=== PATIENT | male | born 1940 | race Caucasian/White ===

== ENCOUNTER 2021-03-03 08:05 | Day surgery (SDC) | payer MEDICARE, BC ==
[2021-02-25 15:12] LABS: BASOPHILS % (AUTO) 0.9 % (0-1); EOSINOPHILS # (AUTO) 0.1 X10'3 (0-0.9); EOSINOPHILS % (AUTO) 3.1 % (0-6); LYMPHOCYTES # (AUTO) 0.7 X10'3 (1.1-4.8); MEAN CORPUSCULAR HEMOGLOBIN 30.8 PG (27.0-31.0); MEAN CORPUSCULAR HGB CONC 33.1 g/dL (33.0-36.5); MEAN PLATELET VOLUME 9.3 FL (7.4-10.4); MONOCYTES # (AUTO) 0.3 X10'3 (0-0.9); MONOCYTES % (AUTO) 7.8 % (2-12); NEUTROPHILS # (AUTO) 3.2 X10'3 (1.8-7.7); NEUTROPHILS % (AUTO) 72.2 % (42-75); PRE OP HEMATOCRIT 42.4 % (42.0-52.0); PRE OP PLATELET COUNT 120 X10'3 (140-440); RED BLOOD COUNT 4.56 X10'6 (4.70-6.10); RED CELL DISTRIBUTION WIDTH 14.3 % (11.5-14.5)
[2021-02-25 15:24] LABS: PRE OP PROTIME 10.6 SECONDS (9.0-12.0)
[2021-02-25 15:27] LABS: ALBUMIN 3.9 G/DL (3.4-5.0); ALBUMIN/GLOBULIN RATIO 1.3 (1.1-1.5); ALKALINE PHOSPHATASE 53 IU/L (46-116); BLOOD UREA NITROGEN 27 MG/DL (7-18); BUN/CREATININE RATIO 15.3 (5.4-32.0); CHLORIDE 109 MMOL/L (99-107); CREATININE 1.77 MG/DL (0.60-1.10); PRE OP ALT 36 U/L (30-65); PRE OP ANION GAP 9 (8-16); PRE OP AST 29 U/L (10-37); PRE OP BILIRUB, TOTAL 0.4 MG/DL (0.0-1.0); PRE OP GLUCOSE 118 MG/DL (70-104); PRE OP POTASSIUM 4.4 MMOL/L (3.4-5.1); PRE OP SODIUM 146 MMOL/L (135-145); TOTAL CARBON DIOXIDE 27.6 MMOL/L (24-32); eGFR 37 ML/MIN
[2021-03-03] VITALS (9 sets, daily range): BP systolic 104–134; BP diastolic 61–77
[~2021-03-03] VITALS: Ht 177.8 cm; Wt 99.3 kg
[~2021-03-03 08:05] MED LIST: ANAS1TAB10 PO; ATOR40TA72 PO; CLOP75TA34 PO; DUTA0.5C36 PO; FEBU40TA PO; HYDR-3968 PO; LEVO50TA8 PO; LIDOcaine 1% W/epiNEPHrine 1:100,000 20ml vial ONE; PREG150C46 PO; cefTAZidime 1gm inj ONE; cocaine 4% topical solution 4ml bottle ONE; famotidine 20mg tablet PO ONE; mupirocin 2% ointment 22GM ONE; oxymetazoline 15 ML nasal spray NS ONE; oxymetazoline 15 ML nasal spray NS PRN; ringers solution, lacted 1,000 ML IV SCH
--- NOTE | 2021-03-03 08:30 | NUR ---
PT RESPONDED ALL NEGATIVES TO COVID VERBAL SCREENING QUESTIONS.
[2021-03-03] MEDS ORDERED: fentaNYL/PF 50MCG/1 ML 2ML syringe ONE (09:14)
[2021-03-03] MEDS ORDERED: propofol inj 20 ML IV ONE (09:15)
[2021-03-03] MEDS ORDERED: LIDOcaine 2% (20mg/ml) 5ml vial ONE (09:15)
[2021-03-03] MEDS ORDERED: sevoflurane 250ml liquid IH ONE (09:25)
[2021-03-03] MEDS ORDERED: ringers solution, lacted 1,000 ML IV SCH (10:00)
[2021-03-03] MEDS ORDERED: morphine 2 MG/ML inj. syringe IV PRN (10:00)
[2021-03-03] MEDS ORDERED: ondansetron/PF 4mg/2ml inj IV PRN (10:00)
[2021-03-03] MEDS ORDERED: glycopyrrolate 0.2mg/ml inj ONE (10:48)
[2021-03-03] MEDS ORDERED: ondansetron/PF 4mg/2ml inj ONE (10:48)
[2021-03-03] MEDS ORDERED: dexamethasone sod phosphate 4mg/ml inj. ONE (10:48)
--- NOTE | 2021-03-03 11:05 | NUR ---
Received from OR via [facility], accompanied by Anesthesiologist DR STAPLETON and report given by Anesthesiologist. PATIENT WAKING UP, NO S/S OF PAIN, V/S WNL, SCD ON, 20G TO RUE, COTTONOID TO LEFT NARE-NO DRAINAGE NOTED.
--- NOTE | 2021-03-03 11:35 | NUR ---
COTTONOID REMOVED WITH LITTLE DRAINAGE-PT TOLERATED WELL.
[2021-03-03] MEDS ORDERED: salt irrigation nasal spray 45 ML SPRAY NS SCH ×2 (11:38→13:00)
--- NOTE | 2021-03-03 12:25 | NUR ---
PT UP AND DRESSED, ABLE TO VOID, VSS, DENIES ANY PAIN, PIV D/CD- CANNULA INTACT, DISCUSSED HOME CARE FOR NASAL IRRIGATION AND MEDICATIONS, PT USED OCEAN SPRAY AND OINTMENT BEFORE LEAVING, ALL QUESTIONS ANSWERED, FRESH GAUZE PLACE UNDER NOSE, PT TAKEN WITH SUPPLIES AND BELONGINGS TO VEHICLE, TRANSPORTED BY FRIEND HOME.
== END 2021-03-03 12:25 | disposition home or self-care (01) ==
LOC: PAS 08:05
PROVIDERS: ATTEND Otolaryngology
DX: J32.8 Other chronic sinusitis (principal); J34.3 Hypertrophy of nasal turbinates; J33.8 Other polyp of sinus; I25.2 Old myocardial infarction; G47.33 Obstructive sleep apnea (adult) (pediatric); Z96.611 Presence of right artificial shoulder joint; Z95.5 Presence of coronary angioplasty implant and graft; Z98.890 Other specified postprocedural states; Z87.442 Personal history of urinary calculi; Z88.8 Allergy status to other drugs, medicaments and biological substances; Z79.899 Other long term (current) drug therapy; Z87.891 Personal history of nicotine dependence; Z79.01 Long term (current) use of anticoagulants
CPT/HCPCS: 30140; 31255; 31267; 36415; 61782; 80053; 82948; 85025; 85576; 85610; 85730; 87070; 87075; 87077; 87102; A6402; C9250; J0713; J1100; J2001; J2405; J2704; J3010; J7040; J7120; 88304; 88311; A4618; A7000; J3490